=== PATIENT | female | born 1985 | race Caucasian/White ===

== ENCOUNTER → 2016-04-14 | Outpatient (CLI) | payer OTHER ==
[~2016-04-14] MED LIST: BENADRYL25 M3 PO; NUVARING V1 VAG.RING VG; PHENERGAN SUPP25 MG PR; PROTONIX20 MG PO; REGLAN10 MG PO; ZOFRAN PO
--- NOTE | ~2016-04-14 | US6 ---
[facility] A Service of [facility] & [facility] RADIOLOGY TEXT RESULTS PATIENT: SILVIA VALENCIA LOCATION: [facility] : 87 UNIT #: [id number] AGE: [address]: Jaime Manriquez MD SEX: F ORDER DR: [id number] [facility] [address] [place], [place] [address] [id number] O MR#: [id number] Acc #: [id number] NAME: SILVIA VALENCIA : 1985 SEX: F STUDY DATE/TIME: 04/14/2016 8:01 UNIT: [facility] ROOM: STUDY DESCRIPTION: US Abdominal Limited Attending Physician: Jaime Manriquez M.D. Referring Physician: Jaime Manriquez M.D. Ordering Physician: Jaime Manriquez M.D. Primary Care Physician: Luda Sanchez A.P.R.N. MEDICAL IMAGING REPORT This report is preliminary unless electronic signature is present EXAM Right upper quadrant ultrasound 04/14/2016 HISTORY Right upper quadrant abdominal pain, nausea, vomiting, and diarrhea for 6 weeks, worse in the morning. FINDINGS Ultrasound examination of the right upper quadrant is negative. There is no cholelithiasis, gallbladder wall thickening, or bile duct dilatation. The visualized liver is negative. IMPRESSION Negative right upper quadrant ultrasound examination. Dictated by... Ector Peña M.D. THIS IS AN ELECTRONICALLY VERIFIED REPORT Ector Peña M.D. at 04/14/2016 4:58 PM KRT/shana TD: 04/14/2016 13:40 JOB #: [id number] MEDICAL IMAGING REPORT COPY
--- NOTE | ~2016-04-14 | NM22 ---
[facility] A Service of [facility] & [facility] RADIOLOGY TEXT RESULTS PATIENT: SILVIA VALENCIA LOCATION: [facility] : 87 UNIT #: [id number] AGE: [address]: Jaime Manriquez MD SEX: F ORDER DR: [id number] [facility] [address] [place], [place] [address] [id number] O MR#: [id number] Acc #: [id number] NAME: SILVIA VALENCIA : 1985 SEX: F STUDY DATE/TIME: 04/14/2016 9:50 UNIT: [facility] ROOM: STUDY DESCRIPTION: NM Hepatobiliary W GB Pharm Attending Physician: Jaime Manriquez M.D. Referring Physician: Jaime Manriquez M.D. Ordering Physician: Jaime Manriquez M.D. Primary Care Physician: Luda Sanchez A.P.R.N. MEDICAL IMAGING REPORT This report is preliminary unless electronic signature is present EXAM HIDA scan with Kinevac CCK 04/14/2016 HISTORY Nausea, vomiting and abdominal pain for 6 weeks with diarrhea. Right upper quadrant pain, abdominal pressure, early satiety, loss of appetite. FINDINGS The patient received an intravenous injection of 5.53 mCi of technetium 99m tagged Choletec for hepatobiliary imaging. 1 hour following the injection of the radiopharmaceutical, the patient received an intravenous injection 1.4 mcg of Kinevac. There was homogeneous distribution of the radiotracer throughout the liver. Gallbladder activity was seen by 15 minutes post injection of the radiopharmaceutical. Following Kinevac injection, the gallbladder ejection fraction was 57.2% (normal is greater than 30%). IMPRESSION Normal HIDA scan with gallbladder ejection fraction of 57.2%. Dictated by... Ector Peña M.D. THIS IS AN ELECTRONICALLY VERIFIED REPORT Ector Peña M.D. at 04/14/2016 4:58 PM SARAH/vincent TD: 04/14/2016 13:51 JOB #: [id number] MEDICAL IMAGING REPORT COPY
[2016-04-14 11:27] LABS: HEMATOCRIT 42.7 % (35.0-45.0); HEMOGLOBIN 14.3 gm/dL (12.0-16.0); MEAN CELL VOLUME 88.7 FL (83-96); MEAN CORPUSCULAR HEMOGLOBIN 29.7 PG (28-34); MEAN CORPUSCULAR HGB CONC 33.5 g/dL (30-36); MEAN PLATELET VOLUME 9.2 FL (6.5-11.5); RED BLOOD COUNT 4.82 X10e (3.90-5.30); RED CELL DISTRIBUTION WIDTH 12.6 % (11.0-15.5); WHITE BLOOD COUNT 9.2 X10e3 (4.0-10.5)
[2016-04-14 12:08] LABS: ALBUMIN SERUM 4.1 g/dL (3.5-5.0); ALKALINE PHOSPHATASE 56 U/L (32-92); ALT (SGPT) 21 U/L (10-40); AMYLASE 24 U/L (0-46); AST (SGOT) 29 U/L (10-42); BILIRUBIN,TOTAL 0.5 mg/dL (0.2-2.0); BLOOD UREA NITROGEN 9 mg/dL (9-23); CALCIUM SERUM 9.1 mg/dL (8.4-10.2); CARBON DIOXIDE 23 mmol/L (22-31); CHLORIDE 106 mmol/L (100-111); CREATININE SERUM 0.9 mg/dL (0.6-1.4); GLOM FILT RATE Estimated ABOVE60 mL/min (>60); GLUCOSE FASTING 100 mg/dL (70-110); LIPASE 23 U/L (22-51); POTASSIUM 3.3 mmol/L (3.5-5.1); PROTEIN TOTAL SERUM 7.6 g/dL (6.0-8.3); SODIUM 140 mmol/L (135-145)
[2016-04-19 20:43] LABS: GLIADIN IGA AB 4 Units (<20); GLIADIN IGG AB 4 Units (<20); RETICULIN IGA SCREEN W/REFLEX Negative (Negative); TISSUE TRANSGLUTAMINASE IGA AB 1 U/mL (<4)
== END | disposition home or self-care (01) ==
LOC: CLAB 07:16
PROVIDERS: Internal Medicine
DX: R10.9 Unspecified abdominal pain (principal); R11.2 Nausea with vomiting, unspecified
CPT/HCPCS: 36415; 76705; 78227; 80053; 82150; 83516; 83690; 84443; 85027; 86255; A9537; J2805

== ENCOUNTER 2016-04-17 15:34 | Emergency (ER) | payer OTHER ==
--- NOTE | ~2016-04-17 | CT2 ---
[facility] A Service of [facility] RADIOLOGY TEXT RESULTS PATIENT: SILVIA VALENCIA LOCATION: [facility] : 87 UNIT #: [id number] AGE: [address]: Domingo Cooper MD SEX: F ORDER DR: [id number] [facility] [address] [place], [place] [address] [id number] E MR#: [id number] Acc #: [id number] NAME: SILVIA VALENCIA : 1985 SEX: F STUDY DATE/TIME: 04/17/2016 15:08 UNIT: [facility] ROOM: STUDY DESCRIPTION: CT Abd and Pelv W Cont Attending Physician: Domingo Cooper M.D. Ordering Physician: Ed Aron Boateng M.D. Primary Care Physician: Luda Sanchez A.P.R.N. MEDICAL IMAGING REPORT This report is preliminary unless electronic signature is present EXAM CT abdomen and pelvis with oral and IV contrast, 04/17/2016 HISTORY Nausea, vomiting, diarrhea and abdomen pain for 6 weeks. No injury. FINDINGS CT abdomen and pelvis was performed with oral and IV contrast. CT ABDOMEN: Diffuse fatty infiltration of the liver. No hepatic mass or biliary dilatation. The gallbladder, pancreas, kidneys, and adrenal glands are unremarkable. No bowel dilatation. No ascites. No adenopathy. Incidental subcentimeter cysts in the upper pole of the spleen are stable compared to 06/22/2014. Normal caliber abdominal aorta. No ascites. No bowel dilatation. Normal appendix. CT PELVIS: No pelvic free fluid. No mass or adenopathy. Uterus and adnexa are unremarkable. The urinary bladder is normal. IMPRESSION 1. No acute findings in the abdomen or pelvis. 2. No bowel obstruction or urinary obstruction. Normal appendix. 3. Incidental subcentimeter cysts in the upper pole of the spleen. Dictated by... Gopal Gaines M.D. THIS IS AN ELECTRONICALLY VERIFIED REPORT Gopal Gaines M.D. at 04/18/2016 3:29 PM DFL/jak [facility] A Service of [facility] RADIOLOGY TEXT RESULTS PATIENT: SILV[facility] VALENCIA [id number] : [birth year] UNIT #: [id number] AGE: [address]: Domingo Cooper MD SEX: F ORDER DR: TD: 04/18/2016 03:46 JOB #: [id number] MEDICAL IMAGING REPORT COPY
[2016-04-17 13:56] LABS: BASOPHIL% 0.3 % (0-2.5); EOSINOPHIL% 0.3 % (0.0-7.0); HEMATOCRIT 40.7 % (35.0-45.0); LYMPHOCYTE# 1.3 X10e3 (1.0-3.5); LYMPHOCYTE% 15.3 % (17.0-45.0); MEAN CELL VOLUME 88.7 FL (83-96); MEAN CORPUSCULAR HEMOGLOBIN 30.5 PG (28-34); MEAN CORPUSCULAR HGB CONC 34.3 g/dL (30-36); MEAN PLATELET VOLUME 9.6 FL (6.5-11.5); MONOCYTE# 0.2 X10e3 (0-1.0); MONOCYTE% 2.9 % (3.0-12.0); NEUTROPHIL# 6.7 X10e3 (1.5-7.1); NEUTROPHIL% 81.2 % (40-75); PLATELET COUNT 273 X10e3 (140-420); RED BLOOD COUNT 4.59 X10e (3.90-5.30); RED CELL DISTRIBUTION WIDTH 12.6 % (11.0-15.5); WHITE BLOOD COUNT 8.3 X10e3 (4.0-10.5)
[2016-04-17 13:57] LABS: DIFF IND NO
[2016-04-17 14:41] LABS: ALBUMIN SERUM 4.1 g/dL (3.5-5.0); ALKALINE PHOSPHATASE 57 U/L (32-92); ALT (SGPT) 21 U/L (10-40); AST (SGOT) 30 U/L (10-42); BILIRUBIN, DIRECT 0.1 mg/dL (0.0-0.2); BILIRUBIN,INDIRECT 0.7 mg/dL (0.0-0.9); BILIRUBIN,TOTAL 0.8 mg/dL (0.2-2.0); BLOOD UREA NITROGEN 10 mg/dL (9-23); BUN/CREATININE RATIO 11.11; CALCIUM SERUM 9.2 mg/dL (8.4-10.2); CARBON DIOXIDE 26 mmol/L (22-31); CHLORIDE 103 mmol/L (100-111); CREATININE SERUM 0.9 mg/dL (0.6-1.4); GLOM FILT RATE Estimated ABOVE60 mL/min (>60); GLUCOSE FASTING 103 mg/dL (70-110); LIPASE 25 U/L (22-51); PROTEIN TOTAL SERUM 7.6 g/dL (6.0-8.3); SODIUM 140 mmol/L (135-145)
[2016-04-17 14:51] LABS: URINE SOURCE CLEAN CATCH
[2016-04-17 15:46] LABS: URINE APPEARANCE CLEAR; URINE COLOR YELLOW; URINE SPECIFIC GRAVITY 1.027 (1.003-1.035)
[2016-04-17 15:47] LABS: URINE LEUKOCYTE ESTERASE 1+ (NEG); URINE NITRATE NEG (NEG)
[2016-04-17 15:48] LABS: URINE PROTEIN TRACE (NEG)
[2016-04-17 15:49] LABS: CULTURE INDICATED? YES; URINE BACTERIA AUWI 2+ (NEGATIVE); URINE BILIRUBIN NEG (NEG); URINE BLOOD NEG (NEG); URINE GLUCOSE NORM (NEG); URINE KETONE 40 (NEG); URINE UROBILINOGEN 0.2 MG/DL (NEG)
[2016-04-17 15:50] LABS: URINE SQUAMOUS EPITHELIAL CELL FEW /[HPF]
== END 2016-04-17 17:52 | disposition home or self-care (01) ==
LOC: CED 15:34
PROVIDERS: Emergency Medicine
DX: N39.0 Urinary tract infection, site not specified (principal); E87.6 Hypokalemia; F41.9 Anxiety disorder, unspecified; F17.210 Nicotine dependence, cigarettes, uncomplicated; Z98.890 Other specified postprocedural states
CPT/HCPCS: 36415; 74177; 80048; 80076; 81003; 83690; 84703; 85025; 87086; 96361; 96365; 96375; 96376; 99284; J0500; J0696; J2405; J2765; Q9967

== ENCOUNTER → 2016-10-04 | Outpatient (CLI) | payer OTHER ==
--- NOTE | ~2016-10-04 | NM19 ---
[facility] A Service of [facility] RADIOLOGY TEXT RESULTS PATIENT: SILVIA BLACK LOCATION: [facility] : 87 UNIT #: [id number] AGE: [address]: Jaime Manriquez MD SEX: F ORDER DR: [id number] [facility] [address] [place], [place] [address] [id number] O MR#: [id number] Acc #: [id number] NAME: SILVIA BLACK : 1985 SEX: F STUDY DATE/TIME: 10/04/2016 9:21 UNIT: [facility] ROOM: STUDY DESCRIPTION: NM Gastric Emptying Study Attending Physician: Jaime Manriquez M.D. Referring Physician: Jaime Manriquez M.D. Ordering Physician: Jaime Manriquez M.D. Primary Care Physician: Luda Sanchez A.P.R.N. MEDICAL IMAGING REPORT This report is preliminary unless electronic signature is present EXAM Radionuclide gastric emptying scan, 10/04/2016. HISTORY Nausea. Vomiting. Right upper quadrant and mid back pain, bloating, early satiety began March 2016. TECHNIQUE Following ingestion of 565 mcCi technetium-99m sulfur colloid admixed in scrambled eggs, anterior and posterior views of the abdomen obtained at 0, 60, 120, and 240 minutes post ingestion. Region of interest drawn around stomach, and time/activity curve constructed. FINDINGS Percent remaining at time intervals as follows: 60 minutes - 74%, 120 minutes - 48%, 240 minutes - 6%. Percent empty at time intervals as follows: 60 minutes - 26%, 120 minutes -52%, 240 minutes - 94%. IMPRESSION 2-hour solid phase gastric emptying in this patient is 52%. Normal is greater than 60%. 4-hour solid phase gastric emptying is 94%; normal is greater than 90%. Dictated by... Terry sEtrada M.D. THIS IS AN ELECTRONICALLY VERIFIED REPORT Terry Estrada M.D. at 10/05/2016 6:35 PM ULISES/chen TD: 10/04/2016 17:36 [facility] A Service of [facility] RADIOLOGY TEXT RESULTS PATIENT: SILVIA BLACK LOCATION: [facility] #: [id number] : [birth year] UNIT #: [id number] AGE: [address]: Jaime Manriquez MD SEX: F ORDER DR: JOB #: [id number] MEDICAL IMAGING REPORT Page 1 of 1 COPY
== END | disposition home or self-care (01) ==
LOC: CNUC 08:43
DX: R11.2 Nausea with vomiting, unspecified (principal)
CPT/HCPCS: 78264; A9541